=== PATIENT | male | born 1960 | race Caucasian/White ===

== ENCOUNTER 2021-07-27 02:13 | Outpatient (CLI) | payer MEDICAID, SELFPAY ==
[2021-07-27 12:15] LABS: Source Nasal/Nares
[2021-07-27 16:49] LABS: COVID-19 PCR Negative (Negative)
== END 2021-07-27 02:14 | disposition home or self-care (01) ==
LOC: LBO 02:13
PROVIDERS: PCP Nurse Practitioner Family; Visit Provider Ophthalmology
DX: Z20.822 Contact with and (suspected) exposure to COVID-19 (principal)
CPT/HCPCS: 87635

== ENCOUNTER 2021-07-29 07:00 | Day surgery (SDC) | payer MEDICAID, SELFPAY ==
[2021-07-29 09:57] VITALS: BP 137/86; PULSE 69; RESP 16; TEMP 36.2; O2SAT 99
[2021-07-29] MEDS: Tropicam./Phenyleph. (1/2.5%) 5 ML BTL OD ×3 (10:23→10:34)
--- NOTE | 2021-07-29 10:33 | ANES.PREOP_ITS ---
General Info Date of Service Date Performed: 07/29/21 Height: 5 ft 9 in Weight: 93 kg Body Mass Index (BMI): 30.2 Surgical Procedure: Operation Date: 07/29/21 12:40 Proposed Procedure Side Surgeon p Cataract Extraction with IOL Implant Right Farrukh Montalvo MD Meds Allergies and Home Medications Allergies Allergy/AdvReac Type Severity Reaction Status Date / Time oxaprozin [From Daypro] Allergy Severe Anaphylaxis Verified 07/29/21 10:16 varenicline [From Chantix] Allergy Intermediate Psychosis Verified 07/29/21 10:16 naproxen Allergy Mild Nausea Verified 07/29/21 10:16 Home Medication Medication Instructions Recorded apixaban 5 mg tablet (Eliquis) 5 mg PO BID 07/27/21 aspirin 325 mg tablet 325 mg PO DAILY 07/27/21 atorvastatin 80 mg tablet 80 mg PO DAILY 07/27/21 cilostazol 100 mg tablet 100 mg PO DAILY 07/27/21 cyclobenzaprine 10 mg tablet 10 mg PO Q8H PRN 07/27/21 lisinopril 20 1 tab PO DAILY 07/27/21 mg-hydrochlorothiazide 12.5 mg tablet metoprolol succinate 100 mg 100 mg PO DAILY 07/27/21 tablet,extended release 24 hr omeprazole 40 mg capsule,delayed 40 mg PO DAILY 07/27/21 release Current Visit Medications: Current Medications Generic Name Dose Route Start Last Admin Trade Name Freq PRN Reason Stop Dose Admin Acetaminophen 1,000 mg 07/29/21 06:00 Acetaminophen 500 Mg Tab PO Q4H PRN PRN Miscellaneous Medication 0 ml 07/29/21 06:00 Prednisolone 1%, Moxifloxacin 0.5%, Nepafenac 0.1% 5ml Btl OD DIRECTED [facility] Miscellaneous Medication 0 ml 07/29/21 06:00 07/29/21 10:29 Tropicam./Phenyleph. 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 Tobacco Smoking/Tobacco Use Status: Former Tobacco Use Alcohol Alcohol Intake: current Alcohol intake frequency: a few times a week Alcohol type: beer Substance Use Substance use type: does not use Vital Signs and Lab Results Vital Signs Most Recent Vital Signs in EMR: Most Recent Vital Signs Temp Pulse Resp BP Pulse Ox 36.2 C L 69 16 137/86 99 07/29/21 09:57 07/29/21 09:57 07/29/21 09:57 07/29/21 09:57 07/29/21 09:57 Lab Results Blood Type / Crossmatch: No Data to Display Complete Blood Count: No Data to Display Complete Metabolic Panel: No Data to Display Liver Function Panel: No Data to Display Coagulation Panel: No Data to Display Cardiac Panel: No Data to Display Arterial Blood Gas: No Data to Display Venous Blood Gas: No Data to Display Pancreas Panel: No Data to Display Thyroid Panel: No Data to Display Infectious Disease: Coronavirus (COVID-19)(PCR) Negative (Negative) 07/27/21 09:27 07/27/21 Coronavirus 2019 Source Nasal/Nares 07/27/21 09:27 07/27/21 Blood Cultures: No Data to Display Toxicology Panel: No Data to Display Anesthesia Assessment and Plan Anesthesia History Personal History: No History of Anesthesia Complications Family History: No Family History of Anesthesia Complications Exercise Tolerance Exercise Tolerance: Metabolic Equivalents>4 Pertinent Negatives Pertinent Negatives: No Symptoms of GERD, No Major Pulmonary Symptoms or Complaints and No History of CVA/TIA Cardiac & Pulmonary Exam Cardiac Exam: Normal S1/S2 Heart Sounds and Other (Bruit noted 2/2 bilateral carotids on vascular note: did not appreciate these on assessment today.) Pulmonary Exam: Clear Bilateral Breath Sounds Implantable Cardiac Device Does patient have a Pacemaker or an ICD?: No Airway Exam Known Difficult Airway: No Mallampati Class: 3 Mouth Opening: Normal (> 3cm) Thyromental Distance: Greater than 3 cm Neck Range of Motion: Full ROM Neck Circumference: Normal Teeth Condition: Generalized Poor Dentition (Only three teeth remaining all lower left jaw. ) Tooth Numberin. three teeth remaining. Patient states not loose. ASA Classification ASA Score: ASA 3 Emergency Case?: No NPO Status NPO Status: NPO Clears >2 hours, Solids >8 hours Anesthesia Plan Resuscitation Status: Full Code Anesthesia Technique: MAC Anesthesia Airway Planned: Natural Airway Monitors Used: Standard Monitors Preoperative Comments:: 2012 Aortobifemoral bypass. 2013 reocclusion requiring thrombectomy and revision. Started on anticoagulants and has since ceased smoking.
[2021-07-29 10:34] VITALS: BMI 30.2
[2021-07-29] MEDS: Tetracaine 0.5% 4 ML BTL OD (11:57)
[2021-07-29] MEDS: Balanced Salt Soln.-PLUS 500 ML BAG (11:58)
[2021-07-29] MEDS: Duovisc Viscoelastic System EACH 1 EACH (11:59)
[2021-07-29] MEDS: Lidocaine 2% Jelly 6 ML SYR (12:01)
[2021-07-29] MEDS: Povidone-Iodine Ophth 30 ML BTL (12:09)
[2021-07-29] MEDS: Trypan Blue 0.06% 0.5 ML SYR (12:11)
[2021-07-29 12:20] VITALS: BP 118/75; PULSE 60; RESP 16; TEMP 36.2; O2SAT 99
--- NOTE | 2021-07-29 12:21 | W.PM.DSUDISC ---
Discharge Plan Disposition Patient Disposition: HOME Condition: Good Discharge Details Attending Provider: Farrukh Montalvo Primary Care Provider: Sky Chauhan Home Meds and New Rx's Prescriptions: No Action cyclobenzaprine 10 mg Tablet 10 mg PO Q8H PRN 0RF cilostazol 100 mg Tablet 100 mg PO DAILY 0RF atorvastatin 80 mg Tablet 80 mg PO DAILY 0RF lisinopril-hydrochlorothiazide 20-12.5 mg Tablet 1 tab PO DAILY 0RF aspirin 325 mg Tablet 325 mg PO DAILY 0RF metoprolol succinate 100 mg Tablet Extended Release 24 Hr 100 mg PO DAILY 0RF omeprazole 40 mg Capsule,Delayed Release(Dr/Ec) 40 mg PO DAILY 0RF Eliquis 5 mg Tablet 5 mg PO BID 0RF Discharge Instructions Stand Alone Forms: Post-op Topical Cataract, Asif Gan (DSU) Discharge Orders Discharge Orders: Discharge Order (Routine); Ordered 07/29/21 Ordered By: Farrukh Montalvo DS: Diagnosis Discharge Diagnosis (1) Nuclear sclerotic cataract of right eye: Status: Resolved (2) Posterior subcapsular age-related cataract, right eye: Status: Resolved
--- NOTE | 2021-07-29 12:22 | ROE_ITS ---
Date of service: 07/29/21 Time of Service: 12:23 Operative Note Operative Note DATE OF PROCEDURE: 07/29/21 PRE-OP DIAGNOSIS: Nuclear/posterior subcapsular cataract, right eye Mild hyperopia, right eye POST-OP DIAGNOSIS: same PROCEDURE: Cataract extraction using phacoemulsification with intraocular lens implant, right eye SURGEON: Farrukh Montalvo ANESTHESIA TYPE: Local By Surgeon and MAC Refer to Anesthesia Record ESTIMATED BLOOD LOSS: 0 PATHOLOGY: none sent COMPLICATIONS: None Patient was transported to: same day Patient's condition: stable Implants: Celestine [id number] Indications: Progressive decreased vision due to cataract, right eye Procedure Description: CATARACT SURGERY OPERATIVE REPORT PREOPERATIVE DIAGNOSIS: Nuclear/posterior subcapsular cataract, right eye Mild hyperopia, right eye POSTOPERATIVE DIAGNOSIS: Same OPERATION: Cataract extraction using phacoemulsification with posterior chamber intraocular lens implant, right eye. IOL: IOL Chair Car Attendant/Model: Celestine [id number] IOL Power: + 34.0 diopters IOL Serial Number: [id number] Optic Diameter: 6.0mm Haptic/Overall Diameter: 13.0mm PHACO INFO: Celestine Centurion Vision System with OZil and Active Fluidics Cumulative Dispersed Energy (CDE): 3.73 seconds SURGEON: Farrukh Montalvo MD, FRANKI ANESTHESIA: Monitored Anesthesia Care (MAC), with local sub-tenon's anesthetic infiltration COMPLICATIONS: None SPECIMENS: None INDICATIONS FOR PROCEDURE: The patient is a 61-year-old gentleman with history of diminished visual acuity in his right eye secondary to the development of significant nuclear and posterior subcapsular cataract. He has a history of very high hyperopia with intermediate card tender contact lens monovision OS distance, OD near, refractive error approx -2.25. . He has previously undergone cataract surgery in the left eye elsewhere with post op refractive target for distance. He now presents for cataract surgery OD, with post op refractive target of -2.00- -2.25. PROCEDURE: The correct surgical eye was identified and marked as the right eye and the pupil was dilated in the preoperative area using mydriatics and cycloplegics. The dilated pupil size was 7.0 mm. He elected to proceed without oral sedation. The patient was brought to the operating room where cardiopulmonary monitoring was instituted and surgical time-out was performed, confirming the correct operative eye and IOL power. Topical anesthesia was administered and ophthalmic povidone-iodine 5% was instilled into the conjunctival fornices. Lidocaine gel was applied to the cornea and the jose francisco-ocular area was prepped with Betadine 10% solution and drap ed in the usual sterile fashion for intraocular surgery, including an aperture drape. A Tegaderm transparent film dressing was cut in half and used to cover the lashes and lid margins. Care was taken to sequester the lashes and lid margins under the Tegaderm dressing. A lid speculum was placed between the lids of the operative eye and the Celestine LuxOR Revalia operating microscope was maneuvered into position. Татьяна scissors were then used to make a conjunctival buttonhole approximately 6mm posterior to the limbus in the inferonasal quadrant. Blunt dissection was carried out to expose bare sclera, and a blunt-tipped sub-tenon?s anesthesia cannula was introduced and passed posteriorly along the globe where non- preserved plain lidocaine was injected into posterior sub-Tenon?s space. A sideport knife was used to make a paracentesis port inferiortemporally. Air was injected in the anterior chamber followed by vision blue, which was painted over the lens capsule and then irrigated out with BSS. Intraocular phenylephrine/lidocaine was injected into the anterior chamber. The anterior chamber was then filled with viscoelastic. A 2.4mm keratome knife was used to create a half-thickness groove at the limbus and then to construct a three-plane near-clear corneal tunnel extending 2.0mm into clear cornea in the superiortemporal position. . A flap was raised on the anterior capsule and capsulorhexis forceps were used to complete a continuous curvilinear capsulorhexis of 5.0mm. Balanced salt solution was then used to perform cortical cleaving hydrodissection and nuclear hydrodelineation until the lens could be freely rotated within the capsular bag. The lens nucleus was then disassembled and removed within the capsular bag and iris plane using phacoemulsification. Residual cortical material was removed using the I/A handpiece. The posterior capsule was carefully polished to remove as much residual lens epithelial cells as safely possible. The capsular bag was then inflated and the anterior chamber deepened with viscoelastic. The lens implant described above was inserted into the capsular bag using the Celestine Monach III Injector. A Kuglen hook was used to dial the IOL into position. Residual viscoelastic was then removed first from posterior to the IOL, then from the anterior chamber using the I/A handpiece. The lens implant was noted to center nicely within the capsular bag. The incisions were stromally hydrated, and the anterior chamber was reformed using BSS. Then 0.5cc of moxifloxacin 1.0mg/ml were injected into the capsular bag and anterior chamber. The incisions were checked with a Weck spear and found to be secure. Several drops of ophthalmic povidone-iodine 5% were then applied to the eye followed by two drops of Imprimis combination prednisolone/moxifloxacin/nepafenac solution. The drapes were removed and a clear plastic protective eye shield was placed over the eye. The patient was then returned to [facility] Day Surgery in stable condition.
--- NOTE | 2021-07-29 12:55 | W.ANESPOSTOP ---
Postoperative Evaluation Date, Time and Location Date Performed: 07/29/21 Time Performed: 12:20 Patient Location: Day Surgery Unit Vital Signs Most Recent Imported Vital Signs: Most Recent Vital Signs Temp Pulse Resp BP Pulse Ox 36.2 C L 60 16 118/75 99 07/29/21 12:20 07/29/21 12:20 07/29/21 12:20 07/29/21 12:20 07/29/21 12:20 Pain Score Most Recent Pain Score: Most Recent Pain Score Pain Level 0 07/29/21 12:20 Assessment Mental Status: Awake (Alert & Oriented to Patient Baseline) Airway and Respiratory Function: Patent airway with normal (patient baseline) respiratory exam Cardiovascular Function: Hemodynamically Stable Hydration Status: Adequately Hydrated Nausea & Vomiting: No Nausea or Vomiting Pain: Pt. Denies Any Pain Peripheral Nerve Block: Patient did not receive a nerve block
== END 2021-07-29 07:01 | disposition home or self-care (01) ==
PROVIDERS: PCP Nurse Practitioner Family; Visit Provider Ophthalmology
PROC: (CPT 66984; principal; 2021-07-29 12:30)
DX: H25.041 Posterior subcapsular polar age-related cataract, right eye (principal); I10 Essential (primary) hypertension; I73.9 Peripheral vascular disease, unspecified; E78.5 Hyperlipidemia, unspecified; G47.33 Obstructive sleep apnea (adult) (pediatric)
CPT/HCPCS: 66984; V2632